=== PATIENT | female | born 1965 | race American Indian/Alaskan Native ===

== ENCOUNTER 2018-09-30 00:38 | Emergency (ER) | payer OTHER ==
[2018-09-30 02:28] LABS: Alanine Aminotransferase 39 units/L (7-56); Albumin 4.2 g/dL (3.9-5); BUN/Creatinine Ratio 22; Blood Urea Nitrogen 20 mg/dL (7-17); Calcium 10.1 mg/dL (8.4-10.2); Hemolysis Index 18
--- NOTE | 2018-09-30 02:29 | XRay Report ---
PROCEDURE: XR CHEST 1V AP TECHNIQUE: Chest radiograph single view. HISTORY: ams COMPARISONS: None . FINDINGS: Heart: Normal. Mediastinum/Vessels: Normal. Lungs/Pleural space: Normal. Bony thorax: No acute osseous abnormality. Life support devices: None. IMPRESSION: No acute cardiopulmonary abnormality. This document is electronically signed by Slava Chu MD., September 30 2018 02:27:06 AM ET
[2018-09-30 02:42] LABS: Alanine Aminotransferase 40 units/L (7-56); Albumin 4.3 g/dL (3.9-5)
[2018-09-30 02:50] LABS: Bilirubin,Direct < 0.2 mg/dL (0-0.2)
--- NOTE | 2018-09-30 03:03 | Emergency Department Report ---
ED General Adult HPI - General Chief complaint: Altered Mental Status Stated complaint: AMS Time Seen by Provider: 09/30/18 01:28 Source: EMS Mode of arrival: Wheelchair Limitations: Altered Mental Status - History of Present Illness Initial comments: 52-year-old female with history of schizophrenia presents to the ED by EMS. Patient found at home by son, laying on the floor, with several layers of clothing on, covered in emesis. Son states patient normally sleeps on the floor next to the door, so that is not unusual. Son states patient is not taking care of herself, not taking her medications. States patient was receiving Invega injections, however has not received any of her medications in the last year. Patient's son states her behavior improves when she is on her psychiatric medication. Son states he checks on patient daily and brings her food to eat, however she has not been eating recently. States patient is also not talking to hime, which is not uncommon, and has happened multiple times in the past. -: This evening Consistency: constant Improves with: none Worsens with: none - Related Data Allergies Allergy/AdvReac Type Severity Reaction Status Date / Time Unable to Assess Allergy Unverified 09/30/18 01:09 ED Review of Systems ROS: Stated complaint: AMS Other details as noted in HPI Comment: Unobtainable due to pts medical conditions (AMS) ED Past Medical Hx - Past Medical History Previous Medical History?: Yes Hx Psychiatric Treatment: Yes (schizophrenia) - Social History Smoking Status: Unknown if ever smoked ED Physical Exam - General Limitations: Altered Mental Status General appearance: alert, in no apparent distress, other (appears frail) - Head Head exam: Present: atraumatic, normocephalic - Eye Eye exam: Present: normal appearance - ENT ENT exam: Present: mucous membranes moist - Neck Neck exam: Present: normal inspection - Respiratory Respiratory exam: Present: normal lung sounds bilaterally. Absent: respiratory distress - Cardiovascular Cardiovascular Exam: Present: regular rate, normal rhythm - GI/Abdominal GI/Abdominal exam: Present: soft. Absent: distended, tenderness - Extremities Exam Extremities exam: Present: normal inspection. Absent: pedal edema, calf tenderness - Neurological Exam Neurological exam: Present: other (moves all extremities, opens eyes and makes eye contact, nonverbal, does not follow commands; GCS= 10) - Psychiatric Psychiatric exam: Present: flat affect - Skin Skin exam: Present: warm, dry, intact, normal color. Absent: rash ED Course Vital Signs 09/30/18 09/30/18 09/30/18 01:23 01:31 01:45 Temperature Pulse Rate 53 L 56 L Respiratory 9 L 8 L Rate Blood Pressure 176/100 169/117 O2 Sat by Pulse 81 L 100 100 Oximetry 09/30/18 09/30/18 09/30/18 02:00 02:15 02:30 Temperature 97.8 F Pulse Rate 60 53 L 53 L Respiratory 7 L 10 L 7 L Rate Blood Pressure 173/114 209/118 208/127 O2 Sat by Pulse 100 100 100 Oximetry 09/30/18 09/30/18 09/30/18 02:45 03:00 03:15 Temperature Pulse Rate 65 56 L 50 L Respiratory 8 L 7 L 9 L Rate Blood Pressure 210/131 191/121 183/120 O2 Sat by Pulse 100 100 100 Oximetry 09/30/18 09/30/18 09/30/18 03:30 03:45 04:00 Temperature Pulse Rate 55 L 57 L 58 L Respiratory 7 L 7 L 7 L Rate Blood Pressure 189/112 192/122 180/113 O2 Sat by Pulse 100 100 100 Oximetry 09/30/18 09/30/18 09/30/18 04:15 05:07 05:11 Temperature Pulse Rate 55 L Respiratory 9 L 18 Rate Blood Pressure 180/113 182/123 O2 Sat by Pulse 100 100 Oximetry 09/30/18 05:15 Temperature Pulse Rate 82 Respiratory 9 L Rate Blood Pressure 166/102 O2 Sat by Pulse 100 Oximetry ED Medical Decision Making - Lab Data Result diagrams: 09/30/18 05:15 09/30/18 01:45 - EKG Data -: EKG Interpreted by [facility] EKG shows normal: sinus rhythm, axis, intervals, QRS complexes, ST-T waves Rate: normal - EKG Data Interpretation: no acute changes - Radiology Data Radiology results: report reviewed, image reviewed - Medical Decision Making 52-year-old female with altered mental status. CT head shows 1 cm hemorrhagic contusion in the left frontal lobe without any signs of mass effect. Patient has been nonverbal here in ED, however moves all extremities, laying in bed comfortably, turns over onto her side from time to time. Son states patient and has not been on her psychiatric medications, or any medications at all, for approximately 1 year, so her current behavior is not uncommon. Son called EMS b/c he felt as though she needed a mental health evaluation again. Spoke with [facility] transfer line, trauma surgeon, Dr. Limon, accepts patient in transfer. - Differential Diagnosis schizophrenia, UTI, pneumonia, electrolyte abnormality, CVA Critical Care Time: Yes Critical care time in (mins) excluding proc time.: 35 Critical care attestation.: If time is entered above; I have spent that time in minutes in the direct care of this critically ill patient, excluding procedure time. Critical Care Time: 35 minutes ED Disposition Clinical Impression: Focal hemorrhagic contusion of cerebrum Disposition: [id number]/TX-[id number] ANOTHER TYPE HLTHCARE Is pt being admited?: No Condition: Stable Referrals: JOHN LEYVA MD [Primary Care Provider] - 3-5 Days Time of Disposition: 05:08
[2018-09-30] MEDS ORDERED: APRESOLINE IV ONE (03:04)
[2018-09-30 03:16] LABS: Amphetamine Screen,Urine PRESUMPTIVE NEGATIVE; Benzodiazepines Screen,Urine PRESUMPTIVE NEGATIVE; Cannabinoid Screen,Urine PRESUMPTIVE NEGATIVE; Cocaine Screen,Urine PRESUMPTIVE NEGATIVE; Methadone Screen,Urine PRESUMPTIVE NEGATIVE; Opiate Screen,Urine PRESUMPTIVE NEGATIVE
[2018-09-30 03:28] LABS: Bilirubin,Urine NEG (Negative); Blood,Urine NEG (Negative); Color,Urine Yellow (Yellow); Mucus,Urine 3+ /HPF; Protein,Urine <15 mg/dL mg/dL (Negative); Urobilinogen,Urine < 2.0 mg/dL (<2.0)
--- NOTE | 2018-09-30 04:59 | Cat Scan Report ---
PROCEDURE: CT HEAD/BRAIN WO CON TECHNIQUE: Computerized tomography of the head was performed without contrast material. CT DOSE LENGTH PRODUCT: mGycm HISTORY: ams COMPARISONS: None . FINDINGS: There are hemorrhagic contusions in the left frontal lobe measuring up to 1 cm. There is prominent ex tra-axial fluid on the right which suggests a chronic subdural effusion. There is no acute subdural h ematoma. There are linear extra-axial densities in the right hemisphere consistent with cortical veins. There is focal subcortical white matter gliosis in the left parietal region. There is no evidence of acute ischemic injury. The ventricles and cortical sulci are symmetrical and appropriate for patient's age. Bony calvarium is intact. The paranasal sinuses are clear. There is fluid in the left mastoid air loretta ls. . IMPRESSION: Left frontal hemorrhagic contusions. There is no mass effect or midline shift. Dr. Nash was notified by telephone at 3:54 AM central time. . This document is electronically signed by Slava Chu MD., September 30 2018 04:57:03 AM ET
[2018-09-30] MEDS ORDERED: APRESOLINE ONE (05:07)
[2018-09-30 05:17] VITALS: BP 166/102
[2018-09-30 05:34] LABS: Basophils % (Auto) 0.6 % (0.0-1.8); Eosinophils % (Auto) 0.1 % (0.0-4.3); Hematocrit 42.9 % (30.3-42.9); Hemoglobin 14.5 gm/dl (10.1-14.3); Lymphocytes # (Auto) 0.8 K/mm3 (1.2-5.4); Lymphocytes % (Auto) 14.6 % (13.4-35.0); Mean Corpuscular HGB Conc 34 % (30-34); Mean Corpuscular Volume 90 fl (79-97); Monocytes # (Auto) 0.4 K/mm3 (0.0-0.8); Monocytes % (Auto) 7.5 % (0.0-7.3); Platelet Count 275 K/mm3 (140-440); Red Blood Count 4.77 M/mm3 (3.65-5.03); Red Cell Distribution Width 15.4 % (13.2-15.2)
== END 2018-09-30 05:40 | disposition other institution (70) ==
LOC: ED 00:38
DX: S06.339A Contusion and laceration of cerebrum, unspecified, with loss of consciousness of unspecified duration, initial encounter (principal); F20.9 Schizophrenia, unspecified; X58.XXXA Exposure to other specified factors, initial encounter; Y93.89 Activity, other specified; Y92.89 Other specified places as the place of occurrence of the external cause; Y99.8 Other external cause status
CPT/HCPCS: 36415; 70450; 71045; 80048; 80053; 80076; 80307; 81001; 82962; 84484; 85025; 93005; 93010; 96374; 99291; G0480; J0360; 80320